=== PATIENT | female | born 1995 ===

== ENCOUNTER 2018-10-11 10:35 | Emergency (ER) | payer MEDICAID, OTHER ==
[2018-10-11 10:47] VITALS: O2SAT 100
--- NOTE | 2018-10-11 11:54 | C.PDOC ---
History Of Present Illness 23 y/o female with no PMHx, presents to the ED complaining of left foot pain for 1 week. Pain is located to the dorsum of her foot, and wraps around the lateral side. She describes pain as sharp and worse with ambulation. Denies any fall or blunt trauma. Patient otherwise has no numbness, paresthesias, or weakness. She did not take any medicine for pain. Time Seen by Provider: 10/11/18 11:05 Chief Complaint (Nursing): Lower Extremity Problem/Injury History Per: Patient History/Exam Limitations: no limitations Onset/Duration Of Symptoms: Days Current Symptoms Are (Timing): Still Present Past Medical History Reviewed: Historical Data, Nursing Documentation, Vital Signs Vital Signs: Last Vital Signs Temp 98.4 F 10/11/18 10:43 Pulse 76 10/11/18 10:43 Resp 20 10/11/18 10:43 BP 115/78 10/11/18 10:43 Pulse Ox 100 10/11/18 10:43 - Medical History PMH: No Chronic Diseases Surgical History: No Surg Hx - [facility] Procedures ASPIRAT CURET-POST DELIV (07/13/13) Family History: States: Unknown Family Hx - Social History Hx Alcohol Use: No Hx Substance Use: No - Immunization History Hx Tetanus Toxoid Vaccination: No Hx Influenza Vaccination: No Review Of Systems Except As Marked, All Systems Reviewed And Found Negative. Constitutional: Negative for: Fever, Chills Eyes: Negative for: Vision Change ENT: Negative for: Nose Congestion, Throat Pain Cardiovascular: Negative for: Chest Pain, Palpitations, Light Headedness Respiratory: Negative for: Cough, Shortness of Breath Gastrointestinal: Negative for: Nausea, Vomiting, Abdominal Pain Musculoskeletal: Positive for: Foot Pain. Negative for: Neck Pain, Back Pain, Other (no calf pain) Skin: Negative for: Lesions Neurological: Negative for: Weakness, Numbness, Incoordination, Headache, Dizziness Physical Exam - Physical Exam Appears: Non-toxic, No Acute Distress Skin: Warm, Dry Head: Atraumatic, Normacephalic Eye(s): bilateral: Normal Inspection, PERRL, EOMI Nose: Normal Neck: Normal ROM, Supple Chest: Symmetrical Cardiovascular: Rhythm Regular, No Murmur Respiratory: Normal Breath Sounds, No Accessory Muscle Use Extremity: Normal ROM, Tenderness (mild tenderness to the dorsal aspect of left foot, over the 4th and 5th metatarsals, and over lateral aspect of foot), Capillary Refill (< 2 sec), No Deformity, No Swelling (or erythema), Other (Neurovascularly intact) Pulses: Left Dorsalis Pedis: Normal, Right Dorsalis Pedis: Normal Neurological/Psych: Oriented x3, Normal Speech, Normal Motor, Normal Sensation Gait: Steady ED Course And Treatment O2 Sat by Pulse Oximetry: 100 (RA) Pulse Ox Interpretation: Normal - Other Rad Left Foot x-ray X-Ray: Read By Radiologist Interpretation: Accession No. : [id number]. Patient Name / ID : MARTHA JACKSON / [id number]. Exam Date : 10/11/2018 11:30:40 ( Approved ). Study Comment : Sex / Age : F / 23Y. Creator : Elva Mckeon MD. Dictator : Evla Mckeon MD. Algologist : Theater Projectionist : Elva Mckeon MD. Approver2 : Report Date : 10/11/2018 11:59:38. My Comment : . PROCEDURE: Left Foot Radiographs. HISTORY: foot pain, dorsal lateral. COMPARISON: None available. FINDINGS: BONES: No acute displaced fracture. JOINTS: No dislocation. SOFT TISSUES: Soft tissue swelling. No evidence of radiopaque foreign body. OTHER FINDINGS: None. IMPRESSION: Soft tissue swelling. No acute displaced fracture, dislocation, or significant joint effusion identified. If symptoms persist, or if there is continued clinical concern, x-ray follow-up in 7-10 days should be considered. Medical Decision Making Medical Decision Making: Plan: * Left foot x-ray Imaging reviewed, discussed with patient. No acute fracture. Left foot wrapped in KATHY bandage by me. States she does not need crutches. Patient is stable for discharge home. Advised to follow up with podiatry clinic. Diagnostic testing results and plan of care discussed with patient. Strict instructions given regarding prescription use, importance of followup, and signs/symptoms to return to ER including numbness, paresthesias, worsening pain, weakness, or any other new/worsening symptoms. Pt verbalized understanding of discussion. Patient is A&Ox3, ambulating with steady gait, with vital signs stable for discharge. Disposition Counseled Patient/Family Regarding: Studies Performed, Diagnosis, Need For Followup, Rx Given - Disposition Referrals: [facility] [Outside] Podiatry Clinic [Outside] Disposition: HOME/ ROUTINE Disposition Time: 12:11 Condition: GOOD Additional Instructions: Rest, no strenuous activity Keep foot compressed, elevated Ibuprofen every 8 hours for pain as needed, with food Followup with podiatry within 2 days Followup with primary doctor within 2 days Return to ER with any new/worsening symptoms Prescriptions: Ibuprofen [Motrin Tab] 600 mg PO Q8 #30 tab Forms: General Discharge Instructions, [facility] ([place]), Work Excuse - POA Present On Arrival: None - Clinical Impression Clinical Impression: Left foot pain - 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 - Scribe Statement The provider has reviewed the documentation as recorded by the Scribjean carlos Diaz All medical record entries made by the Sarwat were at my direction and personally dictated by me. I have reviewed the chart and agree that the record accurately reflects my personal performance of the history, physical exam, medical decision making, and the department course for this patient. I have also personally directed, reviewed, and agree with the discharge instructions and disposition.
--- NOTE | 2018-10-11 12:03 | RAD ---
PROCEDURE: Left Foot Radiographs. HISTORY: foot pain, dorsal lateral COMPARISON: None available. FINDINGS: BONES: No acute displaced fracture. JOINTS: No dislocation. SOFT TISSUES: Soft tissue swelling. No evidence of radiopaque foreign body. OTHER FINDINGS: None. IMPRESSION: Soft tissue swelling. No acute displaced fracture, dislocation, or significant joint effusion identified. If symptoms persist, or if there is continued clinical concern, x-ray follow-up in 7-10 days should be considered.
--- NOTE | 2018-10-11 12:05 | C.PDOC ---
Time Seen by Provider: 10/11/18 11:05 Chief Complaint (Nursing): Lower Extremity Problem/Injury Past Medical History Vital Signs: Last Vital Signs Temp 98.4 F 10/11/18 10:43 Pulse 76 10/11/18 10:43 Resp 20 10/11/18 10:43 BP 115/78 10/11/18 10:43 Pulse Ox 100 10/11/18 10:43 - [facility] Procedures ASPIRAT CURET-POST DELIV (07/13/13) - Social History Hx Alcohol Use: No Hx Substance Use: No - Immunization History Hx Tetanus Toxoid Vaccination: No Hx Influenza Vaccination: No ED Course And Treatment O2 Sat by Pulse Oximetry: 100 Disposition - Disposition
[2018-10-11 12:20] VITALS: BP 112/79; PULSE 68; RESP 18; TEMP 98.1
== END 2018-10-11 12:19 | disposition home or self-care (01) ==
LOC: C.ER 10:35
DX: M79.672 Pain in left foot (principal)